=== PATIENT | male | born 2000 | race Caucasian/White ===

== ENCOUNTER 2023-05-02 11:53 | Inpatient (IN) | payer OTHER, SELFPAY ==
[2023-05-02 11:58] VITALS: BP 136/93; PULSE 75; RESP 16; TEMP 36.7; O2SAT 97
[2023-05-02 12:23] VITALS: BMI 32.8
[2023-05-02 14:00] VITALS: BP 115/74; PULSE 69; RESP 18; TEMP 36.3; O2SAT 98
[2023-05-02 20:26] VITALS: BP 115/76; PULSE 69; RESP 17; TEMP 36.9; O2SAT 98
[2023-05-02] MEDS: trazodone 50 mg Tablet PO (20:48)
[2023-05-02] MEDS: hyDROXYzine 25 mg Capsule 50 MG PO (20:48)
[2023-05-03 06:00] VITALS: BP 113/70; PULSE 58; RESP 16; TEMP 36.9; O2SAT 98
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
[2023-05-03] MEDS: folic acid 1 mg Tablet PO (10:39)
[2023-05-03] MEDS: ferrous sulfate EC 325 mg Tablet PO (10:39)
[2023-05-03] MEDS: famotidine 20 mg Tablet 40 MG PO ×2 (10:39→20:15)
[2023-05-03] MEDS: desvenlafaxine 50 mg Tablet PO ×2 (10:40→15:38)
[2023-05-03] MEDS: fluticasone nasal spray 16gm Btl 2 SPRAY INTRANASAL (10:40)
[2023-05-03 14:00] VITALS: BP 147/69; PULSE 72; RESP 16; TEMP 36.8; O2SAT 97
[2023-05-03] MEDS: lamoTRIgine 100 mg Tablet 150 MG PO (15:38)
[2023-05-03] MEDS: naltrexone hcl 50 mg Tablet PO (15:39)
[2023-05-03 20:17] VITALS: BP 115/78; PULSE 81; RESP 16; TEMP 36.8; O2SAT 98
[2023-05-04 06:00] VITALS: BP 109/70; PULSE 63; RESP 18; TEMP 36.9; O2SAT 97
[2023-05-04] MEDS: desvenlafaxine 50 mg Tablet 100 MG PO (09:04)
[2023-05-04] MEDS: folic acid 1 mg Tablet PO (09:04)
[2023-05-04] MEDS: ferrous sulfate EC 325 mg Tablet PO (09:05)
[2023-05-04] MEDS: famotidine 20 mg Tablet 40 MG PO (09:05)
[2023-05-04] MEDS: lamoTRIgine 100 mg Tablet 150 MG PO (09:05)
[2023-05-04] MEDS: fluticasone nasal spray 16gm Btl 2 SPRAY INTRANASAL (09:05)
[2023-05-04] MEDS: naltrexone hcl 50 mg Tablet PO (09:06)
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
[2023-05-04 14:00] VITALS: BP 149/94; PULSE 80; RESP 16; O2SAT 98
[2023-05-04 14:01] VITALS: BP 109/70; PULSE 63; RESP 18; TEMP 36.9; O2SAT 97
--- NOTE | 2023-05-04 16:43 | PC.NURSE ---
written discharge instructions discussed and left with patient. pt stated understanding and compliance. pt left with medication rx filled from [facility] in [place] with mother.
== END 2023-05-04 16:46 | disposition home or self-care (01) | DRG 885 ==
PROVIDERS: Admitting Provider Psychiatry & Neurology Psychiatry; Visit Provider Psychiatry & Neurology Psychiatry
DX: F33.9 Major depressive disorder, recurrent, unspecified (principal); R45.851 Suicidal ideations; F60.3 Borderline personality disorder; F40.10 Social phobia, unspecified; Z87.891 Personal history of nicotine dependence; F42.9 Obsessive-compulsive disorder, unspecified; E66.9 Obesity, unspecified; Z68.32 Body mass index [BMI] 32.0-32.9, adult; F43.10 Post-traumatic stress disorder, unspecified; F10.91 Alcohol use, unspecified, in remission
CPT/HCPCS: 97150; 97165